=== PATIENT | female | born 1990 ===

== ENCOUNTER 2020-09-06 19:05 | Inpatient (IN) | payer OTHER ==
[~2020-09-06] VITALS: Ht 160 cm; Wt 69.9 kg
[2020-09-06] MEDS ORDERED: PRENATAL TABLE1 EAC1 PO (21:23)
[2020-09-06] MEDS ORDERED: LEVOTHYROXINE25 MCG PO (21:24)
== END 2020-09-09 14:33 | disposition home or self-care (01) | DRG 807 ==
LOC: OB/GYN 19:05 → LDR 19:05 → OB/GYN 09-07 01:57
PROVIDERS: ADMIT Obstetrics & Gynecology; ATTEND Obstetrics & Gynecology
PROC: 10E0XZZ Delivery of Products of Conception, External Approach (ICD-10-PCS; principal; 2020-09-06)
PROC: 0UQG7ZZ Repair Vagina, Via Natural or Artificial Opening (ICD-10-PCS; 2020-09-06)
PROC: 4A1HXFZ Monitoring of Products of Conception, Cardiac Rhythm, External Approach (ICD-10-PCS; 2020-09-06)
DX: O99.284 Endocrine, nutritional and metabolic diseases complicating childbirth (principal); O71.4 Obstetric high vaginal laceration alone; Z37.0 Single live birth; E03.8 Other specified hypothyroidism; Z3A.36 36 weeks gestation of pregnancy; Z20.822 Contact with and (suspected) exposure to COVID-19